=== PATIENT | male | born 1995 ===

== ENCOUNTER 2016-11-14 12:33 | Emergency (ER) | payer MEDICAID ==
[2016-11-14 12:43] VITALS: BP 123/76; PULSE 66; RESP 18; TEMP 97; O2SAT 100
--- NOTE | 2016-11-14 13:08 | ED PDOC ---
HPI: Eye Injury/Pain Time Seen by Provider: 11/14/16 12:42 Chief Complaint (Nursing): Eye Problem Chief Complaint (Provider): Eye pain History Per: Patient Additional Complaint(s): Pt. states 4 days ago he developed R eye redness and discharge. Yesterday he was accidentally struck on the R side of the [employer] and he developed pain around the eye and also developed bruising. Denies LOC, N/V, FB sensation, visual changges, previous TBI, neck pain. Against Medical Advice - AMA Patient Left Against Medical Advice: The patient declines admission to the hospital and wishes to leave the Emergency Department. This action is against my medical advice. This decision was made with informed refusal. The patient was told that admission to the hospital is necessary. Explanation of the reasons why were discussed. The risks of leaving were explained to the patient and include, but are not limited to, worsening of known or currently unknown conditions, permanent disability and from undiagnosed or untreated conditions. The patient has the capacity to make this informed decision and understands my explanation of the current medical problem and risks of leaving. The patient voluntarily accepts these risks and signed an AMA form documenting our conversation. The patient was given the opportunity to ask questions and reconsider. The patient was encouraged to return to the Emergency Department at any time for further care. 11/14/16 16:53 Pt. refused to wait for CT results. Past Medical History Reviewed: Historical Data, Nursing Documentation, Vital Signs Vital Signs: Last Vital Signs Temp 97 F L 11/14/16 12:38 Pulse 66 11/14/16 12:38 Resp 18 11/14/16 12:38 BP 123/76 11/14/16 12:38 Pulse Ox 100 11/14/16 12:38 - Family History Family History: States: No Known Family Hx - Home Medications Home Medications: Ambulatory Orders Medication Instructions Recorded Ibuprofen [Motrin] 600 mg PO Q6 PRN #20 tab 07/30/15 Erythromycin 0.5% [Erythromycin 3.5 gm RIGHTEYE QID #3 tube 11/14/16 0.5% Oint] - Allergies Allergies/Adverse Reactions: Allergies Allergy/AdvReac Type Severity Reaction Status Date / Time No Known Allergies Allergy Verified 07/30/15 04:26 Review of Systems ROS Statement: Except As Marked, All Systems Reviewed And Found Negative Eyes: Positive for: Pain, Conjunctivae Inflammation, Redness Neurological: Positive for: Headache Physical Exam - Reviewed Nursing Documentation Reviewed: Yes Vital Signs Reviewed: Yes - Physical Exam Appears: Positive for: Well, Non-toxic, No Acute Distress Head Exam: Positive for: NORMOCEPHALIC. Negative for: ATRAUMATIC, NORMAL INSPECTION Skin: Positive for: Normal Color, Warm, DRY Eye Exam: Positive for: Normal appearance, EOMI (without pain), PERRL, Periorbital tenderness, Conjunctival injection (R eye with moderate conjunctival injection and yellow discharge noted), Other (minimal ecchymosis to R infra-orbital area). Negative for: Periorbital swelling ENT: Positive for: Normal ENT Inspection, TM Is/Are (no hemotympanum b/l). Negative for: Pharyngeal Erythema, Tonsillar Exudate, Tonsillar Swelling Neck: Positive for: Normal, Painless ROM Cardiovascular/Chest: Positive for: Regular Rate, Rhythm Respiratory: Positive for: Normal Breath Sounds. Negative for: Wheezing Gastrointestinal/Abdominal: Positive for: Normal Exam, Soft. Negative for: Tenderness Back: Positive for: Normal Inspection Extremity: Positive for: Normal ROM Neurologic/Psych: Positive for: Alert, Oriented. Negative for: Gait, Aphasia, Facial Droop - ECG O2 Sat by Pulse Oximetry: 100 - Progress ED Course And Treament: CT head w/o contrast and CT maxillofacial and orbits w/o contrast ordered. CT head w/o contrast: negative. CT maxillofacial w/o contrast: 1. Move acute mildly displaced fracture in the right orbital floor without evidence of entrapment of the inferior rectus muscle. Mild periorbital and premaxillary soft tissue swelling. 2. Acute nondisplaced fracture in the anterior lateral wall of the right maxillary sinus. Nondisplaced fracture in the right zygomatic arch with medial angulation and deformity. 3. Comminuted nondisplaced fracture in the right greater wing of the sphenoid. Case d/w Dr. Fernando who recommends oral antibiotic and to give patient [facility] contact info. Attempted to call pt. at provided number and his sister, Rachel, answered and reports that pt. is currently not available. Message left asking pt. to call back. Letter will aslo be sent. Disposition - Clinical Impression Clinical Impression: Conjunctivitis, Head injury, Left against medical advice - Patient ED Disposition Is Patient to be Admitted: No - Disposition Disposition: Against Medical Advice Disposition Time: 16:42 Condition: STABLE Prescriptions: Erythromycin 0.5% [Erythromycin 0.5% Oint] 3.5 gm RIGHTEYE QID #3 tube Instructions: Conjunctivitis (ED), Head Injury (ED), Against Medical Advice (ED ) Forms: [facility] ED School/Work Excuse
--- NOTE | 2016-11-14 16:52 | CT ---
PROCEDURE: CT HEAD WITHOUT CONTRAST. HISTORY: Trauma COMPARISON: None available. TECHNIQUE: Axial computed tomography images were obtained through the head/brain without intravenous contrast. Radiation dose: Total exam DLP = 845.19 mGy-cm. This CT exam was performed using one or more of the following dose reduction techniques: Automated exposure control, adjustment of the mA and/or kV according to patient size, and/or use of iterative reconstruction technique. FINDINGS: HEMORRHAGE: No intracranial hemorrhage. BRAIN: Fernandez-white matter differentiation is preserved. There is no mass, mass effect or abnormal extra-axial fluid collection. VENTRICLES: The ventricles are normal in size, shape and configuration. CALVARIUM: There is no calvarial fracture. There is mild diffuse scarring swelling. There is also right premaxillary soft tissue swelling. PARANASAL SINUSES: Unremarkable as visualized. No significant inflammatory changes. MASTOID AIR CELLS: Unremarkable as visualized. No inflammatory changes. OTHER FINDINGS: None. IMPRESSION: No acute intracranial abnormality.
--- NOTE | 2016-11-14 17:06 | CT ---
PROCEDURE: CT ORBITS WITHOUT CONTRAST. HISTORY: Trauma COMPARISON: None available. TECHNIQUE: Axial CT images of the orbits were obtained. Coronal and sagittal reformats were generated. Radiation dose: Total exam DLP = 775.20 mGy-cm. This CT exam was performed using one or more of the following dose reduction techniques: Automated exposure control, adjustment of the mA and/or kV according to patient size, and/or use of iterative reconstruction technique. FINDINGS: RIGHT ORBIT: RIGHT BONY ORBIT: There is an acute mildly displaced fracture in the right orbital floor. There is also an acute nondisplaced fracture in the anterior lateral wall of the right maxillary. There is also an acute nondisplaced fracture in the lateral wall of the maxilla. There is a nondisplaced fracture in the right zygomatic arch with medial deformity and angulation. There is a comminuted nondisplaced fracture in the greater wing of sphenoid There is mild right periorbital and premaxillary soft tissue swelling. RIGHT INTRAORBITAL STRUCTURES: Globe: Normal. Extraocular muscles: Normal. Post septal space: Normal. Optic Nerve: Normal. Lacrimal Apparatus: Normal. RIGHT PRESEPTAL SOFT TISSUES: Mild soft tissue swelling. LEFT ORBIT: LEFT BONY ORBIT: Normal. LEFT INTRAORBITAL STRUCTURES: Globe: Normal. Extraocular muscles: Normal. Post septal space: Normal Optic Nerve: Normal. . Lacrimal Apparatus: Normal. LEFT PRESEPTAL SOFT TISSUES: Normal. OTHER: None. IMPRESSION: 1. Move acute mildly displaced fracture in the right orbital floor without evidence of entrapment of the inferior rectus muscle. Mild periorbital and premaxillary soft tissue swelling. 2. Acute nondisplaced fracture in the anterior lateral wall of the right maxillary sinus. Nondisplaced fracture in the right zygomatic arch with medial angulation and deformity. 3. Comminuted nondisplaced fracture in the right greater wing of the sphenoid.
== END 2016-11-14 17:04 | disposition home or self-care (01) ==
LOC: H.ER 12:33
DX: H10.9 Unspecified conjunctivitis (principal); R51 Headache

== ENCOUNTER 2016-12-14 21:11 | Emergency (ER) | payer MEDICAID ==
[2016-12-14 21:48] VITALS: BP 125/79; PULSE 80; RESP 18; TEMP 99; O2SAT 99
--- NOTE | 2016-12-14 21:57 | ED PDOC ---
HPI: Eye Injury/Pain Time Seen by Provider: 12/14/16 21:40 Chief Complaint (Nursing): Eye Problem Chief Complaint (Provider): Redness of Eyes History Per: Patient History/Exam Limitations: no limitations Onset/Duration Of Symptoms: Days Current Symptoms Are (Timing): Still Present Additional Complaint(s): 21:50 Robin Corea is a 21 year old male that presents to the ED with a chief complaint of redness in his eyes that he has had been seen for one month ago and never fully resolved. Patient reports that since the onset of his symptoms he has been waking up in the morning and his eyes felt as though they were "stuck together." He states that his left eye appears more red and is tearing. Patient denies any cough or congestion. No fever or chills. Past Medical History Reviewed: Historical Data, Nursing Documentation, Vital Signs Vital Signs: Last Vital Signs Temp 99 F 12/14/16 21:45 Pulse 80 12/14/16 21:45 Resp 18 12/14/16 21:45 BP 125/79 12/14/16 21:45 Pulse Ox 99 12/14/16 21:45 - Family History Family History: States: Unknown Family Hx - Home Medications Home Medications: Ambulatory Orders Medication Instructions Recorded Ibuprofen [Motrin] 600 mg PO Q6 PRN #20 tab 07/30/15 Erythromycin 0.5% [Erythromycin 3.5 gm RIGHTEYE QID #3 tube 11/14/16 0.5% Oint] Loratadine/Pseudoephedrine 1 each PO DAILY #30 tab.er.24h 12/14/16 [Claritin-D 24 Hour Tablet] Tobramycin/Dexamethasone [TobraDex 1 appl OD BID #1 tube 12/14/16 0.3%-0.1% Opht Oint] - Allergies Allergies/Adverse Reactions: Allergies Allergy/AdvReac Type Severity Reaction Status Date / Time No Known Allergies Allergy Verified 07/30/15 04:26 Review of Systems Eyes: Positive for: Redness (bilaterally) Physical Exam - Reviewed Nursing Documentation Reviewed: Yes Vital Signs Reviewed: Yes - Physical Exam Appears: Positive for: Non-toxic, No Acute Distress Head Exam: Positive for: ATRAUMATIC, NORMOCEPHALIC Skin: Positive for: Normal Color, Warm Eye Exam: Positive for: Conjunctival injection (mild conjunctival injection bilaterally). Negative for: Normal appearance Neurologic/Psych: Positive for: Alert, Oriented - ECG O2 Sat by Pulse Oximetry: 99 (RA) Pulse Ox Interpretation: Normal Medical Decision Making Medical Decision Makin:55 Impression: Conjunctivitis Plan: * Tobramycin Ointment Scribe Attestation: Documented by Joy Forrest, acting as a scribe for Clementina Luciano PA-C. Provider Scribe Attestation: All medical record entries made by the Scribe were at my direction and personally dictated by me. I have reviewed the chart and agree that the record accurately reflects my personal performance of the history, physical exam, medical decision making, and the department course for this patient. I have also personally directed, reviewed, and agree with the discharge instructions and disposition. Disposition - Clinical Impression Clinical Impression: Conjunctivitis - Patient ED Disposition Is Patient to be Admitted: No - Disposition Disposition: Routine/Home Disposition Time: 22:15 Condition: STABLE Prescriptions: Loratadine/Pseudoephedrine [Claritin-D 24 Hour Tablet] 1 each PO DAILY #30 tab.er.24h Tobramycin/Dexamethasone [TobraDex 0.3%-0.1% Opht Oint] 1 appl OD BID #1 tube Instructions: Conjunctivitis (ED)
[2016-12-15] MEDS ORDERED: Tobramycin/Dexamethasone OPHT OINT OU SCH (09:00)
== END 2016-12-14 23:29 | disposition home or self-care (01) ==
LOC: H.ER 21:11
DX: H10.9 Unspecified conjunctivitis (principal)